=== PATIENT | female | born 1955 | race Caucasian/White ===

== ENCOUNTER 2022-02-10 17:08 | Emergency (ER) | payer OTHER, SELFPAY ==
[2022-02-10 17:19] VITALS: BP 154/93; PULSE 67; RESP 18; TEMP 36.2; O2SAT 95; BMI 28.3
--- NOTE | 2022-02-10 17:33 | ED.GENADULT ---
HPI - General Adult General Time Seen by Provider: 17:33 Date Seen: 02/10/22 Chief complaint: Shoulder Injury/Pain Stated complaint: L shoulder pain weakness Time Seen by Provider: 02/10/22 17:08 Source: patient and RN notes reviewed Mode of arrival: ambulatory Limitations: no limitations History of Present Illness HPI narrative: Patient is a 66-year-old female coming in with left neck pain and weakness of her left shoulder. She states she went to the clinic last week and was diagnosed with pinched nerve in her neck. She states she was given Flexeril. Today she started noticing that she could not lift her arm and call the clinic back. She was told to come back to the clinic for follow-up appointment of things were not better. She notes she called the clinic and talked to triage nurse who told her to come here to the ER as we have the imaging in she probably would need. Unfortunately, I reviewed with the patient that at this time in the evening it would be very unlikely for us to have MRI services nor do we do them emergently for most patients with radiculopathy. However with that said, I reviewed with her needed further history and clinical examination. She has been getting some numbness tingling into her arm sometimes it goes all the way down the arm. She is not experiencing that now she denies any trauma, has not noted any lower arm weakness. She denies any problems with her shoulder, no shoulder pain. She states the pain starts on the left side of her neck and she will feel it into the arm. She is a smoker. Absolutely does not remember any traumatic injury to her neck or shoulder. No fevers or chills. Onset (ago): week(s) Location: neck, left and upper extremity Radiation: non-radiation and extremity Severity: moderate Related Data Home Medications Medication Instructions Recorded Confirmed atorvastatin 40 mg tablet mg 02/10/22 cyclobenzaprine 5 mg tablet mg 02/10/22 losartan 50 mg tablet mg 02/10/22 metformin 500 mg tablet,extended mg PO 02/10/22 release 24 hr venlafaxine 75 mg capsule,extended mg PO 02/10/22 release 24 hr Previous Rx's Medication Instructions Recorded prednisone 20 mg tablet 20 mg PO BID #10 tab 02/10/22 Allergies Allergy/AdvReac Type Severity Reaction Status Date / Time succinylcholine Allergy Verified 02/10/22 17:19 [From Anectine] Review of Systems Narrative: As per HPI [facility] Medical History (Updated 02/10/22 @ 19:01 by Michelle Clemente MD) DM (diabetes mellitus), type 2 Hyperlipidemia Social History Smoking Status: Never smoker Do you use any of these nicotine containing products: None How often do you have a drink containing alcohol: never How often do you have six or more drinks on one occasion: Never AUDIT-C Alcohol total score: 0 Non-prescribed substance use: denies use service: No Exam Const: Vital Signs, click to edit/add: Vital Signs - 24 hr 02/10/22 17:19 Temperature 97.2 F L Pulse Rate [Pulse Oximeter] 67 Respiratory Rate 18 Blood Pressure [Le ft Upper Arm] 154/93 H Pulse Oximetry 95 Documenting provider has reviewed patient's vital signs: yes Common normals: no apparent distress, average body habitus, oriented x3 and alert HENMT: Common normals: normocephalic Head and scalp: normocephalic Eye: Common normals: PERRL and EOMs intact bilaterally Pupil: PERRL Neck & C-Spine: Common normals: full ROM, no lymphadenopathy, supple, no meningeal signs and thyroid normal Thyroid: thyroid normal Back & Pelvis: Other: No midline tenderness along her cervical spine. No facet impingement with compression. She seems to have difficulty lifting her shoulder above 90? with abduction. Forward flexion seems fine. I am able to mobilize her arm and full arc of abduction without any pain, no limitations in range of motion like a frozen shoulder. She however fatigues with holding her arm up overhead and drops back down. States it is difficult to lift it up at the shoulder. Biceps strength testing is 5/5, flexion extension of her wrist hand slate mixer strength and fingers are all 5/5 on that extremity. She has got a really good strong radial pulses and normal cap refill, normal coloration of the extremity. She has normal light touch sensation throughout the whole arm and denies any loss of sensation at this time or alteration of sensation. There is no rotator cuff impingement on testing but with forward flexion she has limitations of getting it fully up to 90?. I can mobilize her arm in full arc of abduction, forward flexion with really not much pain. She herself is not able to abduct beyond 90? not able to fully forward flex. She can reach the involved arm behind her back easily. With her upper arm juxtaposed against her torso she is able to internally externally rotate. Extremity: Common normals: normal to inspection (See exam above as well.) Neuro: Common normals: oriented x3 Sensorium/orientation: alert Meningeal signs: no meningeal signs Deep tendon reflexes: Rt Triceps (C7): 0, Lt Triceps (C7): 0, Rt Biceps (C5, C6): 0 and Lt Biceps (C5, C6): 0 Course Course Hospital Course: Did check with Radiology and we unfortunately do not have capability for MRI imaging. In this situation, would possibly consider doing cervical MRI distant ensure no atypical presentation of a cervical radiculopathy with motor involvement. This does have some findings that make me think this actually might be a rotator cuff issue for her. We have ordered plain cervical spine imaging so that I a can have an idea of possible level of degenerative change in her cervical spine. I do not feel she warrants emergent imaging of her neck her shoulder at this time to request transfer to another institution. Vital Signs Vital signs: Initial Vital Signs Temperature 97.2 F L 02/10/22 17:19 Temperature Source Temporal Artery Scan 02/10/22 17:19 Pulse Rate 67 02/10/22 17:19 Pulse Rhythm 02/10/22 17:19 Respiratory Rate 18 02/10/22 17:19 Blood Pressure 154/93 H 02/10/22 17:19 Blood Pressure Mean 113 02/10/22 17:19 Blood Pressure Position Supine 02/10/22 17:19 Pulse Oximetry 95 02/10/22 17:19 Oxygen Delivery Method 02/10/22 17:19 Vital Signs Temperature 97.2 F L 02/10/22 17:19 Pulse Rate 67 02/10/22 17:19 Respiratory Rate 18 02/10/22 17:19 Blood Pressure 154/93 H 02/10/22 17:19 Pulse Oximetry 95 02/10/22 17:19 Temperature 97.2 F L 02/10/22 17:19 Pulse Rate 67 02/10/22 17:19 Respiratory Rate 18 02/10/22 17:19 Blood Pressure 154/93 H 02/10/22 17:19 Pulse Oximetry 95 02/10/22 17:19 Medical Decision Making MDM Narrative Medical decision making narrative: See hospital course. Imaging Data Cervical spine x-ray: Attestation: I have reviewed the pertinent imaging results. Radiologist's impression: Patient: KRISTIAN GOTTLIEB Facility:?[facility] Patient ID:?[id number] Site Patient ID:?[id number]. Site :?[id number] Study:?XRay Spine Cervical -02/10/2022 6:01:07 PM Ordering Physician:Gina Martinez Final Report: INDICATION: Left radiculopathy. COMPARISON: None. Technique: Three-view study cervical spine. FINDINGS: No evidence of acute fracture or dislocation. C1-C2 articulation is unremarkable. Reversal of the normal cervical arthrosis. Disc space narrowing and disc degeneration at C4-5, C5-6 and C6-7 with anterior as well as posterior osteophytes. Facet joint arthritis in the midcervical spine. IMPRESSION: 1. Reversal of the normal cervical lordosis. 2. No acute fracture or dislocation. 3. Disk space narrowing and disc degeneration with associated facet joint arthritis. Dictated by Keith Flynn MD @ 02/10/2022 6:44:56 PM (Electronic Signature) Critical Care Time Critical Care Time Critical Care Time: No Discharge Plan Discharge Clinical Impression: Neck pain, Rotator cuff disorder Condition: Stable Instructions: Rotator Cuff Tendinitis (ED), Cervical Radiculopathy (ED), Acute Neck Pain (ED) Additional Instructions: It is unclear if this is a combined cervical radiculopathy with a rotator cuff issue. Will try course prednisone which is an anti-inflammatory which can help with nerve impingement. You do need followup in agree that you should see your doctor this coming Thursday. I would recommend antonio Post your doctor in asking if an MRI of your neck could be ordered. We could not unfortunately the get this done. Can continue with the Flexeril. If you have progressive motor weakness of your arms outside of the shoulder, do need to be re-evaluated. Examination of your musculature about her shoulder seemed to be more consistent with a rotator cuff abnormality. Orthopedics can be considered to help evaluate this issue as well, phone number to the office is [phone]. Activity Level: Activity as Tolerated Prescriptions: New prednisone 20 mg tablet 20 mg PO BID Qty: 10 0RF No Action losartan 50 mg tablet 0RF Label Comments: TAKE ONE TABLET BY MOUTH ONE TIME DAILY atorvastatin 40 mg tablet 0RF Label Comments: TAKE ONE TABLET BY MOUTH ONE TIME DAILY venlafaxine 75 mg capsule,extended release 24hr PO 0RF Label Comments: TAKE 1 CAPSULE BY MOUTH ONCE DAILY WITH A MEAL. metformin 500 mg tablet extended release 24 hr PO 0RF Label Comments: TAKE TWO TABLETS BY MOUTH TWICE DAILY WITH FOOD cyclobenzaprine 5 mg tablet 0RF Label Comments: Take 1 Tablet (5 mg) by mouth 3 times daily. Follow Up/Referrals: Ivelisse Roberto MD [Primary Care Provider] - Stand Alone [facility]
--- NOTE | 2022-02-10 17:42 | CRLHL7_ITS ---
For Patients: As a result of the Century Cures Act, medical imaging exams and procedure reports are released immediately into your electronic medical record. You may view this report before your referring provider. If you have questions, please contact your health care provider. INDICATION: Left radiculopathy. COMPARISON: None. Technique: Three-view study cervical spine. FINDINGS: No evidence of acute fracture or dislocation. C1-C2 articulation is unremarkable. Reversal of the normal cervical arthrosis. Disc space narrowing and disc degeneration at C4-5, C5-6 and C6-7 with anterior as well as posterior osteophytes. Facet joint arthritis in the midcervical spine. IMPRESSION: 1. Reversal of the normal cervical lordosis. 2. No acute fracture or dislocation. 3. Disk space narrowing and disc degeneration with associated facet joint arthritis. Dictated by Keith Flynn MD @ 02/10/2022 6:44:56 PM (Electronically Signed)
[2022-02-10 19:03] VITALS: BP 135/68; PULSE 67; RESP 18; TEMP 36.2; O2SAT 95
[2022-02-10 19:20] VITALS: BP 145/74; PULSE 79; RESP 18; TEMP 36.2
== END 2022-02-10 19:21 | disposition home or self-care (01) ==
PROVIDERS: Emergency Provider Family Medicine; PCP Family Medicine
DX: M75.102 Unspecified rotator cuff tear or rupture of left shoulder, not specified as traumatic (principal)
CPT/HCPCS: 72040; 99283; 99284

== ENCOUNTER 2022-03-26 16:45 | Outpatient (RCR) | payer MEDICARE, SELFPAY | END 2022-05-22 14:21 | disposition home or self-care (01) | PROVIDERS: PCP Family Medicine; Visit Provider Family Medicine | DX: M75.122 Complete rotator cuff tear or rupture of left shoulder, not specified as traumatic (principal); Z51.89 Encounter for other specified aftercare | CPT/HCPCS: 97110; 97162 ==

== ENCOUNTER 2022-11-16 10:37 | Emergency (ER) | payer MEDICARE, OTHER, SELFPAY ==
[2022-11-16 10:44] VITALS: BP 137/87; PULSE 69; RESP 18; TEMP 36.6; O2SAT 93; BMI 28.3
--- NOTE | 2022-11-16 11:51 | CRLHL7_ITS ---
For Patients: As a result of the Cures Act, medical imaging exams and procedure reports are released immediately into your electronic medical record. You may view this report before your referring provider. If you have questions, please contact your health care provider. Indication: Knee pain Technique: Left knee 3 views Comparison: None Findings: Medial compartment narrowing and spurring. No fracture. Patellofemoral spurring. Joint effusion. Impression: Degenerative joint disease and joint effusion. Dictated by Guillaume Wilde MD @ 11/16/2022 12:36:20 PM (Electronically Signed)
[2022-11-16] MEDS: ACETAMINOPHEN 500 MG TABLET 1000 MG PO (11:58)
--- NOTE | 2022-11-16 21:15 | ED_ITS ---
HPI - Extremity Injury (Lower) General Date Seen: 11/16/22 Chief Complaint: Extremity Pain/Injury, Lower Stated Complaint: LT knee pain Time Seen by Provider: 11/16/22 10:52 Source: patient and family Mode of arrival: ambulatory Limitations: no limitations History of Present Illness HPI Narrative: Patient is a delightful 67-year-old female presents here for evaluation of a left knee injury, she fell at home approximately a week ago, it has gradually been getting worse, she is not tried any medication for this, she is wearing a knee sleeve, she is brought in today by her significant other for evaluation, previous history of knee injury, pain, denies any other injury to her neck back shoulders are head, with this. complaint: knee injury Onset (ago): week(s) Type of Injury: blunt Place: home Severity: moderate Relieving factors: nothing Exacerbating factors: nothing Context: fall Associated symptoms: swelling Other symptoms: none Related Data Home Medications Medication Instructions Recorded Confirmed atorvastatin 40 mg tablet mg 02/10/22 cyclobenzaprine 5 mg tablet mg 02/10/22 losartan 50 mg tablet mg 02/10/22 metformin 500 mg tablet,extended mg PO 02/10/22 release 24 hr venlafaxine 75 mg capsule,extended mg PO 02/10/22 release 24 hr Previous Rx's Medication Instructions Recorded prednisone 20 mg tablet 20 mg PO BID #10 tabs 02/10/22 Allergies Allergy/AdvReac Type Severity Reaction Status Date / Time succinylcholine Allergy Verified 02/10/22 17:19 [From Anectine] Review of Systems Status of ROS: Reports: 6 or more systems reviewed and unremarkable except as noted in History and below [facility] Medical History DM (diabetes mellitus), type 2 ?E11.9 - Type 2 diabetes mellitus without complications (ICD-10) Hyperlipidemia ?E78.5 - Hyperlipidemia, unspecified (ICD-10) Social History Smoking Status: Never smoker Do you use any of these nicotine containing products: None How often do you have a drink containing alcohol: never How often do you have six or more drinks on one occasion: Never AUDIT-C Alcohol total score: 0 Non-prescribed substance use: denies use service: No Exam Narrative: Exam Narrative: On examination her left knee shows a [id number] effusion, her range of motion is approximately 0-30 degrees, her ACL PCL medial and lateral collateral carolee is all seem intact, her knee cap itself is nontender popliteal fossa is clear with normal pulses DP and posterior tibial pulses are normal she has mild swelling on both her lower legs bilaterally. There is no evidence of open wounds. Const: Vital Signs, click to edit/add: Vital Signs - 24 hr 11/16/22 10:44 Temperature 97.8 F Pulse Rate [Right Pulse Oximeter] 69 Respiratory Rate 18 Blood Pressure [Ri ght Upper Arm] 137/87 Pulse Oximetry 93 Oxygen Delivery Me thod Room Air Documenting provider has reviewed patient's vital signs: yes Course Vital Signs Vital signs: Initial Vital Signs Temperature 97.8 F 11/16/22 10:44 Temperature Source Temporal Artery Scan 11/16/22 10:44 Pulse Rate 69 11/16/22 10:44 Respiratory Rate 18 11/16/22 10:44 Blood Pressure 137/87 11/16/22 10:44 Blood Pressure Mean 103 11/16/22 10:44 Blood Pressure Position Sitting 11/16/22 10:44 Pulse Oximetry 93 11/16/22 10:44 Oxygen Delivery Method Room Air 11/16/22 10:44 Vital Signs Temperature 97.8 F 11/16/22 10:44 Pulse Rate 69 11/16/22 10:44 Respiratory Rate 18 11/16/22 10:44 Blood Pressure 137/87 11/16/22 10:44 Pulse Oximetry 93 11/16/22 10:44 Oxygen Delivery Method Room Air 11/16/22 10:44 Temperature 97.8 F 11/16/22 10:44 Pulse Rate 69 11/16/22 10:44 Respiratory Rate 18 11/16/22 10:44 Blood Pressure 137/87 11/16/22 10:44 Pulse Oximetry 93 11/16/22 10:44 Oxygen Delivery Method Room Air 11/16/22 10:44 MDM - Extremity Injury (Lower) Imaging Data The x-ray: Attestation: I have reviewed the pertinent imaging results. My impression: Moderate to severe arthritis, but no acute fracture. Radiologist's impression: Patient: KRISTIAN BULL Facility: [facility] Site . Site : [id number] Study: XRay Knee Left 3 VIEWS-11/16/2022 12:33:09 PM Ordering Physician: Janeen Pandey Final Report: Indication: Knee pain Technique: Left knee 3 views Comparison: None Findings: Medial compartment narrowing and spurring. No fracture. Patellofemoral spurring. Joint effusion. Impression: Degenerative joint disease and joint effusion. Dictated by Guillaume Wilde MD @ 11/16/2022 12:36:20 PM (Electronic Signature) Discharge Plan Discharge Clinical Impression: Effusion of knee joint, left, Acute knee pain Patient Disposition: Home w/ Parent or Adult Condition: Stable Instructions: Knee Pain (ED) Additional Instructions: Home rest elevation is walker here, I would also suggest use of the knee immobilizer here, follow-up with orthopedics in mid week, please call for an appointment. Tylenol 2 extra-strength tablets every 8 hours is also suggested, I think this is traumatic, and related to your arthritis. Prescriptions: No Action losartan 50 mg tablet Patient Comments: TAKE ONE TABLET BY MOUTH ONE TIME DAILY atorvastatin 40 mg tablet Patient Comments: TAKE ONE TABLET BY MOUTH ONE TIME DAILY venlafaxine 75 mg capsule,extended release 24hr PO Patient Comments: TAKE 1 CAPSULE BY MOUTH ONCE DAILY WITH A MEAL. metformin 500 mg tablet extended release 24 hr PO Patient Comments: TAKE TWO TABLETS BY MOUTH TWICE DAILY WITH FOOD cyclobenzaprine 5 mg tablet Patient Comments: Take 1 Tablet (5 mg) by mouth 3 times daily. prednisone 20 mg tablet 20 mg PO BID Qty: 10 0RF Follow Up/Referrals: Ousmane Lockett MD [Staff Physician] - Ivelisse Roberto MD [Primary Care Provider] - Stand Alone Forms: [employer] Info Instructions
== END 2022-11-16 13:21 | disposition home or self-care (01) ==
PROVIDERS: Emergency Provider Family Medicine; PCP Family Medicine
DX: M25.462 Effusion, left knee (principal); M25.562 Pain in left knee
CPT/HCPCS: 73562; 99283; 99284; A9270

== ENCOUNTER 2023-11-09 16:15 | Outpatient (RCR) | payer MEDICARE, OTHER, SELFPAY | END 2023-12-30 10:53 | disposition home or self-care (01) | PROVIDERS: PCP Family Medicine; Visit Provider Family Medicine | DX: M25.552 Pain in left hip (principal); Z51.89 Encounter for other specified aftercare | CPT/HCPCS: 97110; 97140; 97161 ==